=== PATIENT | male | born 1965 | race Two or more races ===

== ENCOUNTER 2018-07-02 12:17 | Outpatient (CLI) | payer OTHER | END 2018-07-02 14:17 | disposition home or self-care (01) | LOC: ECT 12:17 | DX: F33.2 Major depressive disorder, recurrent severe without psychotic features (principal); I10 Essential (primary) hypertension; M10.9 Gout, unspecified; E78.5 Hyperlipidemia, unspecified; E29.1 Testicular hypofunction ==

== ENCOUNTER 2018-07-15 07:06 | Outpatient (RCR) | payer OTHER ==
[~2018-07-15] VITALS: Ht 170.2 cm; Wt 123.4 kg
[2018-07-15] MEDS ORDERED: Succinylcholine 20mg/ml 10ml vial ONE (07:07)
[2018-07-15] MEDS ORDERED: Methohexital Sodium Syr 100mg/10ml IVP ONE (07:07)
[2018-07-15] MEDS ORDERED: Midazolam 2mg/2ml Inj ONE (07:07)
[2018-07-15] MEDS ORDERED: NS 500ML ONE (07:07)
[2018-07-15 07:55] VITALS: BP 146/81
[2018-07-15] MEDS ORDERED: Ketorolac 30mg Inj IV PRN (08:03)
[2018-07-15] MEDS ORDERED: Sodium Chloride 500ML 500 ML IV ONE (08:03)
[2018-07-15] MEDS ORDERED: Atropine Sulfate 0.4mg/ml inj IVP PRN (08:03)
[2018-07-15 08:05] VITALS: BP 134/102
[2018-07-15 08:10] VITALS: BP 153/68
[2018-07-15 08:15] VITALS: BP 161/61
[2018-07-15 08:20] VITALS: BP 172/77
[2018-07-15 08:23] VITALS: BP 146/68
[2018-07-17 07:59] VITALS: BP 152/99
[2018-07-17] MEDS ORDERED: NS 500ML ONE (08:00)
[2018-07-17] MEDS ORDERED: Ketorolac 60mg Inj IM ONE (08:00)
[2018-07-17] MEDS ORDERED: Succinylcholine 20mg/ml 10ml vial ONE (08:00)
[2018-07-17] MEDS ORDERED: Midazolam 2mg/2ml Inj ONE (08:00)
[2018-07-17] MEDS ORDERED: Methohexital Sodium Syr 100mg/10ml IVP ONE (08:00)
[2018-07-17 08:20] VITALS: BP 168/81
[2018-07-17 08:25] VITALS: BP 159/93
[2018-07-17 08:30] VITALS: BP 157/74
[2018-07-17 08:35] VITALS: BP 158/74
[2018-07-17] MEDS ORDERED: Sodium Chloride 500ML 500 ML IV ONE (14:45)
[2018-07-19 07:42] VITALS: BP 155/94
[2018-07-19] MEDS ORDERED: Sodium Chloride 500ML 500 ML IV ONE ×2 (07:59)
[2018-07-19 08:00] VITALS: BP 122/61
[2018-07-19] MEDS ORDERED: Methohexital Sodium Syr 100mg/10ml IVP ONE (08:00)
[2018-07-19] MEDS ORDERED: NS 500ML ONE (08:00)
[2018-07-19] MEDS ORDERED: Midazolam 2mg/2ml Inj ONE (08:00)
[2018-07-19] MEDS ORDERED: Succinylcholine 20mg/ml 10ml vial ONE (08:00)
[2018-07-19] MEDS ORDERED: Ketorolac 60mg Inj IM ONE (08:00)
[2018-07-19 08:05] VITALS: BP 134/65
[2018-07-19 08:10] VITALS: BP 150/48
[2018-07-19 08:15] VITALS: BP 147/59
[2018-07-22] MEDS ORDERED: Ketorolac 60mg Inj IM ONE (07:00)
[2018-07-22] MEDS ORDERED: Succinylcholine 20mg/ml 10ml vial ONE (07:00)
[2018-07-22] MEDS ORDERED: Methohexital Sodium Syr 100mg/10ml IVP ONE (07:00)
[2018-07-22] MEDS ORDERED: NS 500ML ONE (07:00)
[2018-07-22] MEDS ORDERED: Midazolam 2mg/2ml Inj ONE (07:00)
[2018-07-22 10:55] VITALS: BP 164/105
[2018-07-22] MEDS ORDERED: Sodium Chloride 500ML 500 ML IV ONE (11:10)
[2018-07-22 11:15] VITALS: BP 108/56
[2018-07-22 11:20] VITALS: BP 117/56
[2018-07-22 11:25] VITALS: BP 143/71
[2018-07-22 11:30] VITALS: BP 139/70
[2018-07-24] MEDS ORDERED: Succinylcholine 20mg/ml 10ml vial ONE (08:00)
[2018-07-24] MEDS ORDERED: NS 500ML ONE (08:00)
[2018-07-24] MEDS ORDERED: Ketorolac 60mg Inj IM ONE (08:00)
[2018-07-24] MEDS ORDERED: Methohexital Sodium Syr 100mg/10ml IVP ONE (08:00)
[2018-07-24] MEDS ORDERED: Midazolam 2mg/2ml Inj ONE (08:00)
[2018-07-24 09:38] VITALS: BP 163/104
[2018-07-24] MEDS ORDERED: Sodium Chloride 500ML 500 ML IV ONE (09:51)
[2018-07-24 09:55] VITALS: BP 128/68
[2018-07-24 10:00] VITALS: BP 136/69
[2018-07-24 10:05] VITALS: BP 132/73
[2018-07-24 10:10] VITALS: BP 135/70
[2018-07-26] MEDS ORDERED: Succinylcholine 20mg/ml 10ml vial ONE (07:00)
[2018-07-26] MEDS ORDERED: NS 500ML ONE (07:00)
[2018-07-26] MEDS ORDERED: Methohexital Sodium Syr 100mg/10ml IVP ONE (07:00)
[2018-07-26] MEDS ORDERED: Ketorolac 60mg Inj IM ONE (07:00)
[2018-07-26] MEDS ORDERED: Midazolam 2mg/2ml Inj ONE (07:00)
[2018-07-26 09:22] VITALS: BP 166/107
[2018-07-26] MEDS ORDERED: Sodium Chloride 500ML 500 ML IV ONE (09:34)
[2018-07-26 09:35] VITALS: BP 116/58
[2018-07-26 09:40] VITALS: BP 119/60
[2018-07-26 09:45] VITALS: BP 120/71
[2018-07-26 09:50] VITALS: BP 121/72
[2018-07-29] MEDS ORDERED: Methohexital Sodium Syr 100mg/10ml IVP ONE (08:00)
[2018-07-29] MEDS ORDERED: Midazolam 2mg/2ml Inj ONE (08:00)
[2018-07-29] MEDS ORDERED: Succinylcholine 20mg/ml 10ml vial ONE (08:00)
[2018-07-29] MEDS ORDERED: Ketorolac 60mg Inj IM ONE (08:00)
[2018-07-29] MEDS ORDERED: NS 500ML ONE (08:00)
[2018-07-29 08:51] VITALS: BP 165/96
[2018-07-29] MEDS ORDERED: Sodium Chloride 500ML 500 ML IV ONE (09:08)
[2018-07-29 09:10] VITALS: BP 138/83
[2018-07-29 09:15] VITALS: BP 129/65
[2018-07-29 09:20] VITALS: BP 124/59
[2018-07-29 09:25] VITALS: BP 126/63
[2018-07-31] MEDS ORDERED: Midazolam 2mg/2ml Inj ONE (06:00)
[2018-07-31] MEDS ORDERED: Succinylcholine 20mg/ml 10ml vial ONE (06:00)
[2018-07-31] MEDS ORDERED: NS 500ML ONE (06:00)
[2018-07-31] MEDS ORDERED: Ketorolac 60mg Inj IM ONE (06:00)
[2018-07-31] MEDS ORDERED: Methohexital Sodium Syr 100mg/10ml IVP ONE (06:00)
[2018-07-31 07:31] VITALS: BP 156/92
[2018-07-31 07:50] VITALS: BP 113/52
[2018-07-31] MEDS ORDERED: Sodium Chloride 500ML 500 ML IV ONE (07:50)
[2018-07-31 07:55] VITALS: BP 115/52
[2018-07-31 08:00] VITALS: BP 134/59
[2018-07-31 08:05] VITALS: BP 121/74
[2018-08-02] MEDS ORDERED: Midazolam 2mg/2ml Inj ONE (06:00)
[2018-08-02] MEDS ORDERED: NS 500ML ONE (06:00)
[2018-08-02] MEDS ORDERED: Ketorolac 60mg Inj IM ONE (06:00)
[2018-08-02] MEDS ORDERED: Methohexital Sodium Syr 100mg/10ml IVP ONE (06:00)
[2018-08-02] MEDS ORDERED: Succinylcholine 20mg/ml 10ml vial ONE (06:00)
[2018-08-02 07:55] VITALS: BP 144/102
[2018-08-02] MEDS ORDERED: Sodium Chloride 500ML 500 ML IV ONE (08:07)
[2018-08-02 08:10] VITALS: BP 124/63
[2018-08-02 08:15] VITALS: BP 141/77
[2018-08-02 08:20] VITALS: BP 145/72
[2018-08-02 08:25] VITALS: BP 120/66
[2018-08-05] MEDS ORDERED: NS 500ML ONE (06:00)
[2018-08-05] MEDS ORDERED: Midazolam 2mg/2ml Inj ONE (06:00)
[2018-08-05] MEDS ORDERED: Methohexital Sodium Syr 100mg/10ml IVP ONE (06:00)
[2018-08-05] MEDS ORDERED: Succinylcholine 20mg/ml 10ml vial ONE (06:00)
[2018-08-05] MEDS ORDERED: Ketorolac 60mg Inj IM ONE (06:00)
[2018-08-05 07:50] VITALS: BP 179/99
[2018-08-05 08:10] VITALS: BP 103/53
[2018-08-05 08:15] VITALS: BP 103/53
[2018-08-05 08:20] VITALS: BP 125/71
[2018-08-05 08:25] VITALS: BP 134/64
[2018-08-07 06:45] VITALS: BP 158/91
[2018-08-07] MEDS ORDERED: Sodium Chloride 500ML 500 ML IV ONE (07:00)
[2018-08-07 07:05] VITALS: BP 113/63
[2018-08-07 07:10] VITALS: BP 107/52
[2018-08-07 07:15] VITALS: BP 122/63
[2018-08-07 07:20] VITALS: BP 130/66
[2018-08-09] MEDS ORDERED: Succinylcholine 20mg/ml 10ml vial ONE (07:00)
[2018-08-09] MEDS ORDERED: NS 500ML ONE (07:00)
[2018-08-09] MEDS ORDERED: Methohexital Sodium Syr 100mg/10ml IVP ONE (07:00)
[2018-08-09] MEDS ORDERED: Ketorolac 60mg Inj IM ONE (07:00)
[2018-08-09] MEDS ORDERED: Midazolam 2mg/2ml Inj ONE (07:00)
[2018-08-09 07:36] VITALS: BP 150/91
[2018-08-09] MEDS ORDERED: Sodium Chloride 500ML 500 ML IV ONE (07:53)
[2018-08-09 07:55] VITALS: BP 116/67
[2018-08-09 08:00] VITALS: BP 131/78
[2018-08-09 08:05] VITALS: BP 141/77
[2018-08-09 08:10] VITALS: BP 137/69
== END 2018-08-12 | disposition home or self-care (01) ==
LOC: ECT 07:06
DX: F33.2 Major depressive disorder, recurrent severe without psychotic features (principal); I10 Essential (primary) hypertension; E78.5 Hyperlipidemia, unspecified; M10.9 Gout, unspecified
CPT/HCPCS: 90870; J0330; J2250; J7040

== ENCOUNTER 2018-08-14 05:49 | Outpatient (RCR) | payer OTHER | END 2018-09-12 | disposition home or self-care (01) | LOC: ECT 05:49 | DX: F33.2 Major depressive disorder, recurrent severe without psychotic features (principal); I10 Essential (primary) hypertension; E78.5 Hyperlipidemia, unspecified; M10.9 Gout, unspecified ==